=== PATIENT | female | born 1975 | race Caucasian/White ===

== ENCOUNTER 2022-05-10 13:36 | Emergency (ER) | payer BC ==
[2022-05-10 13:54] VITALS: BP 152/94; PULSE 80; O2SAT 99
[2022-05-10] MEDS ORDERED: Pepcid 20 MG PO ONE (14:00)
[2022-05-10] MEDS ORDERED: Pepcid 20 MG ONE (14:02)
--- NOTE | 2022-05-10 14:07 | ERPHSYRPT ---
- History of Present Illness Time Seen by Provider: 05/10/22 14:01 Source: patient Exam Limitations: no limitations Patient Subjective Stated Complaint: Pt has been on Mounjaro since the end of February and they just upped the dose this past week and she just started Jardiance 3 days ago and pt broke out into red prickly spots afternoon, pt noticed it while she was driving and it did not itch and she had been outside so she thought it had just been the sun, pt went to [facility] this morning due to the spreading of the rash and the itching and received a Kenalog injection and sent home, pt feels that it has went from a red prickly spots to hives now and her throat is scratchy and so she came to the ER Triage Nursing Assessment: Pt brought to the ER by her , hypertensive, rates head pain and overall itching as 3/10, scattered hives and red dots on tomasa arms and legs, chest/abdomen and back Physician History: Pt has been on Mounjaro since the end of February and they just upped the dose this past week and she just started Jardiance 3 days ago and pt broke out into red prickly spots afternoon, pt noticed it while she was driving and it did not itch and she had been outside so she thought it had just been the sun, pt went to [facility] this morning due to the spreading of the rash and the itching and received a Kenalog injection and sent home, pt feels that it has went from a red prickly spots to hives now and her throat is scratchy and so she came to the ER scattered hives and red dots on tomasa arms and legs, chest/abdomen and back Timing/Duration: day(s) (3 days ago) Associated Symptoms: rash, No nausea, No vomiting, No abdominal pain, No shortness of breath, No heartburn, No diaphoresis, No cough, No chills, No chest pain, No fever, No loss of appetite Allergies/Adverse Reactions: iodine Allergy (Mild, Verified 05/10/22 13:54) Penicillins Allergy (Mild, Verified 05/10/22 13:54) Home Medications: Albuterol 8 gm Mdi Hfa [Ventolin Hfa MDI] 2 puffs IH Q4H PRN PRN 07/01/21 [History] Atorvastatin Calcium 20 mg PO HS 07/01/21 [History] Insulin Detemir [Levemir] 80 units SQ BID 07/01/21 [History] Insulin Lispro [Humalog] 20 unit SQ TID 07/01/21 [History] Metformin HCl 500 mg [Glucophage 500 MG] 500 mg PO BID 07/01/21 [History] Hx Tetanus, Diphtheria Vaccination/Date Given: Yes Hx Influenza Vaccination/Date Given: No Hx Pneumococcal Vaccination/Date Given: No Travel Risk - International Travel Have you traveled outside of the country in past 3 weeks: No - Coronavirus Screening Are you exhibiting any of the following symptoms?: No Close contact with a COVID-19 positive Pt in past 14-21 Days: No - Vaccine Status Have you recieved a Covid-19 vaccination: Yes 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[facility]: [employer] - Vaccination Dates Date of 2cond Vaccination (if applicable): 2020 - Review of Systems Constitutional: No Symptoms Eyes: No Symptoms Ears, Nose, & Throat: Sinus Drainage Respiratory: No Symptoms Cardiac: No Symptoms Abdominal/Gastrointestinal: No Symptoms Genitourinary Symptoms: No Symptoms Musculoskeletal: No Symptoms Skin: No Symptoms Neurological: No Symptoms Psychological: No Symptoms - Past Medical History Pertinent Past Medical History: Yes Cardiac History: Hypertension Endocrine Medical History: Diabetes Type II - Past Surgical History Past Surgical History: Yes Female Surgical History: Section Other Surgical History: breast lift. skin removal from arms and abdomin - Social History Smoking Status: Never smoker Exposure to second hand smoke: No Drug Use: none Patient Lives Alone: No - Female History Hx Now: No - Nursing Vital Signs Nursing Vital Signs: Initial Vital Signs Temperature 97.1 F 05/10/22 13:40 Pulse Rate 80 05/10/22 13:40 Blood Pressure 152/94 05/10/22 13:40 O2 Sat by Pulse Oximetry 99 05/10/22 13:40 Pain Scale Pain Intensity 3 - Physical Exam General Appearance: no apparent distress, alert Eye Exam: PERRL/EOMI, eyes nml inspection Ears, Nose, Throat Exam: normal ENT inspection, TMs normal, pharynx normal, moist mucous membranes Neck Exam: normal inspection, non-tender, supple, full range of motion Respiratory Exam: normal breath sounds, lungs clear, No respiratory distress Cardiovascular Exam: regular rate/rhythm, normal heart sounds, normal peripheral pulses Gastrointestinal/Abdomen Exam: soft, normal bowel sounds, No tenderness, No mass Back Exam: normal inspection, normal range of motion, No CVA tenderness, No vertebral tenderness Extremity Exam: normal inspection, normal range of motion, pelvis stable Neurologic Exam: alert, oriented x 3, cooperative, normal mood/affect, nml cerebellar function, nml station & gait, sensation nml, No motor deficits Skin Exam: normal color, warm, dry, rash Lymphatic Exam: No adenopathy SpO2: 99 - Course Nursing assessment & vital signs reviewed: Yes - Progress Progress: unchanged Progress Note: 05/10/22 14:03 Patient is advised to hold the probiotics first which was just started 2 days ago. Patient was advised to continue Benadryl. Patient is given 40 mg famotidine in the emergency room to counteract possible food related allergy. Patient is advised to follow-up in my office in next 3 to 4 days. We discussed the elimination process one by one further because of allergy. At this point of time we will stop probiotic first. Then we will consider Jardiance if progress is still persist. 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 The patient was counseled regarding Diagnosis,Lab results, Imaging studies, need for follow up and when to return to the Emergency Room. Prescriptions given: Discharge Note I have spoken with the patient and/or caregivers. I have explained the patient's condition, diagnosis and treatment plan based on the information available to me at this time. I have answered the patient's and/or caregiver's questions and addressed any concerns. The patient and/or caregivers have as good understanding of the patient's diagnosis, condition and treatment plan as can be expected at this point. The vital signs have been stable. The patient's condition is stable and appropriate for discharge from the emergency department. The patient will pursue further outpatient evaluation with the primary care physician or other designated or consulting physician as outlined in the discharge instructions. The patient and/or caregivers are agreeable to this plan of care and follow-up instructions have been explained in detail. The patient and/or caregivers have received these instruction. The patient/and or caregivers are aware that any significant change in condition or worsening of symptoms should prompt an immediate return to this or the closest emergency department or call 911. LUCAS ROMO was seen on 05/10/22 n the Emergency Room. At that time you were treated for an emergent condition, during your visit Laboratory, Radiology and/or other procedures may have been ordered. It is very important that you follow-up with your Primary Care Physician KARLA JACK within the next 24- 48 hours to review your Emergency Room visit and the final results of testing that was ordered. Some test results such as Urine Cultures, Blood Cultures, and other cultures if ordered will not be finalized for 24-48 hours. If you do not have a Primary Care Provider please call the medical records department at [phone] ext [phone] to obtain a copy of your results or you may sign into our patient portal to obtain these results by visiting us @ [email or web address] and completing the following steps: 1. Click on the Patient Portal link 2. Click the Patient Self Enrollment Link to complete the enrollment form and entering your 3. Once the enrollment form is completed you will receive an email with a temporary ID and password at the email address you provided. 4. Next choose a user name and password. Your user name must be at least 4 characters long and your password must be at least 4 characters long. 5. Choose a security question from the list and provide your answer to the question. If you already have signed into the Health Portal you may access your Health Care Information 16/03 by the following steps: 1. Login to our website @ [email or web address] 2. Enter your original user name and password. FAQS The [facility] Health Portal is an online tool that contains your Lab Results, Radiology Reports, Visit History, Discharge Instructions and Health Summary Lab and Radiology Results will not be available for 72 hours on the portal. The Portal is a secure site, passwords are encryted and URLs are re-written so they cannot be copied and pasted. You and authorized family members are the only ones who can access your Portal. Also there is a timeout feature that protects your information if you leave the Portal page open. If you have technical difficulty please use the Contact Us link on the page this will allow you to submit any questions you have regarding the Portal or you may contact the Medical Record Department at [phone] ext [phone]. Prescriptions: Famotidine 20 mg PO BID #20 tablet
== END 2022-05-10 14:16 | disposition home or self-care (01) ==
LOC: ED 13:36
DX: L50.0 Allergic urticaria (principal); I10 Essential (primary) hypertension; E11.9 Type 2 diabetes mellitus without complications; Z79.4 Long term (current) use of insulin; Z79.84 Long term (current) use of oral hypoglycemic drugs; Z79.899 Other long term (current) drug therapy
CPT/HCPCS: 99281; A9270-GY

== ENCOUNTER 2024-02-17 18:39 | Emergency (ER) | payer BC ==
[2024-02-17 19:05] VITALS: TEMP 98.2
--- NOTE | 2024-02-17 19:24 | ERPHSYRPT ---
- History of Present Illness Time Seen by Provider: 02/17/24 19:22 Historian: patient Exam Limitations: no limitations Patient Subjective Stated Complaint: C/O left sided abdominal pain that radiates through to her back X 1 week that is worse and more constant today. Triage Nursing Assessment: Patient ambulated back to ER. She is alert and orient ed. No SOB. Skin tone normal. TORITO DUMONT. Physician History: 48-year-old female presents to emergency department for evaluation of left sided abdominal pain that has been progressively worsening over the past week. Pain is not radiating to her back. No trauma no fever no history of the same. Patient states she feels nauseous but has not vomited. Patient reports constipation as well no diarrhea. Symptoms are moderate in intensity. No specific worsening or improving factors. Patient otherwise feels well. Portions of this note were created with voice recognition technology. There may be grammatical, spelling, punctuation or sound alike errors Timing/Duration: week(s) (1 week) Activities at Onset: none Quality: aching Abdominal Pain Onset Location: other (Left flank and abdominal region) Pain Radiation: no radiation Severity of Pain-Max: moderate Severity of Pain-Current: mild Modifying Factors: Improves With: nothing Associated Symptoms: nausea Previous symptoms: no prior history Allergies/Adverse Reactions: iodine Allergy (Mild, Verified 02/17/24 18:55) Penicillins Allergy (Mild, Verified 02/17/24 18:55) Home Medications: Albuterol 8 gm Mdi Hfa [Ventolin Hfa MDI] 2 puffs IH Q4H PRN PRN 07/01/21 [History] Atorvastatin Calcium 20 mg PO HS 07/01/21 [History] Insulin Detemir [Levemir] 80 units SQ BID 07/01/21 [History] Insulin Lispro [Humalog] 20 unit SQ TID 07/01/21 [History] Metformin HCl 500 mg [Glucophage 500 MG] 500 mg PO BID 07/01/21 [History] Hx Tetanus, Diphtheria Vaccination/Date Given: Yes Hx Influenza Vaccination/Date Given: No Hx Pneumococcal Vaccination/Date Given: No Immunizations Up to Date: Yes Travel Risk - International Travel Have you traveled outside of the country in past 3 weeks: No - Emerging Infectious Disease Are you exhibiting symptoms associated with any current EIDs: Yes Symptoms: Abdominal Pain - Review of Systems Constitutional: No Symptoms, No Fever, No Chills Eyes: No Symptoms Ears, Nose, & Throat: No Symptoms Respiratory: No Symptoms, No Cough, No Dyspnea Cardiac: No Symptoms, No Chest Pain, No Edema, No Syncope Abdominal/Gastrointestinal: No Symptoms, No Abdominal Pain, No Nausea, No Vomiting, No Diarrhea Genitourinary Symptoms: No Symptoms, No Dysuria Musculoskeletal: No Symptoms, No Back Pain, No Neck Pain Skin: No Symptoms, No Rash Neurological: No Symptoms, No Dizziness, No Focal Weakness, No Sensory Changes Psychological: No Symptoms Endocrine: No Symptoms Hematologic/Lymphatic: No Symptoms Immunological/Allergic: No Symptoms All Other Systems: Reviewed and Negative - Past Medical History Pertinent Past Medical History: Yes Cardiac History: High Cholesterol, Hypertension Endocrine Medical History: Diabetes Type II GI Medical History: GERD - Past Surgical History Past Surgical History: Yes Female Surgical History: Section Other Surgical History: breast lift. skin removal from arms and abdomin - Female History Hx Last Menstrual Period: september 23 2012 Hx Now: No - Social History Smoking Status: Never smoker Exposure to second hand smoke: No Drug Use: none Patient Lives Alone: No - Social Determinants of Health Will the patient participate in the screening: Declined to provide - Nursing Vital Signs Nursing Vital Signs: Initial Vital Signs Temperature 98.2 F 02/17/24 18:56 Pulse Rate 86 02/17/24 18:56 Respiratory Rate 25 H 02/17/24 18:56 Blood Pressure 138/98 02/17/24 18:56 O2 Sat by Pulse Oximetry 100 02/17/24 18:56 Pain Scale Pain Intensity 4 - Physical Exam General Appearance: no apparent distress, alert Eye Exam: PERRL/EOMI, eyes nml inspection Ears, Nose, Throat Exam: normal ENT inspection, pharynx normal, moist mucous membranes Neck Exam: normal inspection, non-tender, supple, full range of motion Respiratory Exam: normal breath sounds, lungs clear, airway intact, No respiratory distress Cardiovascular Exam: regular rate/rhythm, normal heart sounds, normal peripheral pulses Gastrointestinal/Abdomen Exam: soft, other (Left-sided abdominal tenderness), No tenderness, No mass Back Exam: normal inspection, normal range of motion, No CVA tenderness, No vertebral tenderness Extremity Exam: normal inspection, normal range of motion, pelvis stable Neurologic Exam: alert, oriented x 3, cooperative, normal mood/affect, sensation nml, No motor deficits Skin Exam: normal color, warm, dry Lymphatic Exam: No adenopathy SpO2 Interpretation: normal SpO2: 100 O2 Delivery: Room Air - Course Nursing assessment & vital signs reviewed: Yes EKG Interpreted by Me: RATE (70), Sinus Rhythm, NORMAL AXIS, NORMAL INTERVALS - CT Exams Abdomen/Pelvis CT Interpretation: Tele-radiologist Report (No comps. Sigmoid diverticulosis. 9 mm left renal angiomyolipoma. 4.1 cm right ovarian cyst. Remaining abdomen pelvis negative) Ordered Tests: Active Orders 24 hr Category Date Time Status IV Insertion STAT Care 02/17/24 19:20 Active ABDOMEN AND PELVIS W/0 CONTRAS [CT] Stat Exams 02/17/24 19:21 Taken BMP Stat Lab 02/17/24 22:57 Completed CBC W DIFF Stat Lab 02/17/24 19:30 Completed CMP Stat Lab 02/17/24 19:30 Completed HCG QUALITATIVE, URINE Stat Lab 02/17/24 19:30 Completed LIPASE Stat Lab 02/17/24 19:30 Completed TROPONIN Q4H Lab 02/17/24 19:30 Completed TROPONIN Q4H Lab 02/17/24 22:57 Completed TROPONIN Q4H Lab 02/18/24 03:30 Ordered UA W/RFX UR CULTURE Stat Lab 02/17/24 19:30 Completed Medication Summary Discontinued Medications Generic Name Dose Route Start Last Admin Trade Name Freq PRN Reason Stop Dose Admin Sodium Chloride 1,000 mls @ 999 mls/hr 02/17/24 19:20 02/17/24 21:59 Sodium Chloride 0.9% 1000 Ml IV 02/17/24 20:20 Infused .Q1H1M STA Infusion Sodium Chloride Confirm 02/17/24 19:49 Sodium Chloride 0.9% 1000 Ml Administered 02/17/24 19:50 Dose 1,000 mls @ ud .ROUTE .STK-MED ONE Sodium Chloride Confirm 02/17/24 21:47 Sodium Chloride 0.9% 1000 Ml Administered 02/17/24 21:48 Dose 1,000 mls @ ud .ROUTE .STK-MED ONE Sodium Chloride 1,000 mls @ 999 mls/hr 02/17/24 21:55 02/17/24 21:57 Sodium Chloride 0.9% 1000 Ml IV 02/17/24 22:55 999 mls/hr .Q1H1M STA Administration Morphine Sulfate 2 mg 02/17/24 19:20 02/17/24 20:00 Morphine Sulfate 2 Mg/Ml Inj IV 02/17/24 19:21 2 mg STAT ONE Administration Morphine Sulfate Confirm 02/17/24 19:49 Morphine Sulfate 2 Mg/Ml Inj Administered 02/17/24 19:50 Dose 2 mg .ROUTE .STK-MED ONE Ondansetron HCl 4 mg 02/17/24 19:20 02/17/24 20:00 Ondansetron Hcl 4 Mg/2 Ml Vial IV 02/17/24 19:21 4 mg STAT ONE Administration Ondansetron HCl Confirm 02/17/24 19:49 Ondansetron Hcl 4 Mg/2 Ml Vial Administered 02/17/24 19:50 Dose 4 mg .ROUTE .STK-MED ONE Lab/Rad Data: Laboratory Result Diagrams 02/17/24 19:30 02/17/24 22:57 Laboratory Results 02/17/24 02/17/24 02/17/24 Range/Units 22:57 22:57 19:30 WBC (3.98-10.04) x10^3/uL RBC (3.93-5.22) x10^6/uL Hgb (11.2-15.7) g/dL Hct (34.1-44.9) % MCV (79.4-94.8) fL MCH (25.6-32.2) pg MCHC (32.2-35.5) g/dL RDW (11.7-14.4) % Plt Count (182-369) x10^3/uL MPV (9.4-12.3) fL Gran % (34.0-71.1) % Immature Gran % (Auto) (0.001-0.429) % Nucleat RBC Rel Count (0.00-0.2) % Eos # (Auto) (0.04-0.36) x10^3/uL Immature Gran # (Auto) (0.001-0.031) x10^3u/L Absolute Lymphs (auto) (1.18-3.74) x10^3/uL Absolute Monos (auto) (0.24-0.86) x10^3/uL Absolute Nucleated RBC (0.00-0.012) x10^3u/L Lymphocytes % (19.3-51.7) % Monocytes % (4.7-12.5) % Eosinophils % (0.7-5.8) % Basophils % (0.1-1.2) % Absolute Granulocytes (1.56-6.13) x10^3/uL Basophils # (0.01-0.08) x10^3/uL Sodium 129 L (135-145) mmol/L Potassium 3.8 (3.5-5.1) mmol/L Chloride 95 L (98-107) mmol/L Carbon Dioxide 26 (22-30) mmol/L Anion Gap 11.9 (5-15) MEQ/L BUN 11 (7-17) mg/dL Creatinine 0.57 (0.52-1.04) mg/dL Estimated GFR 111.3 ML/MIN Glucose 112 H (74-106) mg/dL Calcium 9.2 (8.4-10.2) mg/dL Total Bilirubin (0.2-1.3) mg/dL AST (14-36) U/L ALT (0-35) U/L Alkaline Phosphatase (38-126) U/L Troponin I < 0.012 (0.000-0.033) ng/mL Serum Total Protein (6.3-8.2) g/dL Albumin (3.5-5.0) g/dL Lipase (23-300) U/L Urine Color (Yellow) Urine Appearance (Clear) Urine pH (4.6-8.0) Ur Specific [place] (1.005-1.030) Urine Protein (Negative) Urine Glucose (UA) (Negative) mg/dL Urine Ketones (Negative) Urine Blood (Negative) Urine Nitrite (Negative) Urine Bilirubin (Negative) Urine Urobilinogen (0.2) mg/dL Ur Leukocyte Esterase (Negative) U Hyaline Cast (Auto) (0-2) /LPF Urine Microscopic RBC (0-5) /HPF Urine Microscopic WBC (0-5) /HPF Ur Epithelial Cells (None Seen) /HPF Urine Bacteria (None Seen) /HPF Urine Culture Reflexed (NO) Urine HCG, Qual NEGATIVE (NEGATIVE) 02/17/24 02/17/24 02/17/24 Range/Units 19:30 19:30 19:30 WBC 8.9 (3.98-10.04) x10^3/uL RBC 4.55 (3.93-5.22) x10^6/uL Hgb 13.6 (11.2-15.7) g/dL Hct 38.5 (34.1-44.9) % MCV 84.6 (79.4-94.8) fL MCH 29.9 (25.6-32.2) pg MCHC 35.3 (32.2-35.5) g/dL RDW 11.9 (11.7-14.4) % Plt Count 333 (182-369) x10^3/uL MPV 9.4 (9.4-12.3) fL Gran % 54.9 (34.0-71.1) % Immature Gran % (Auto) 0.2 (0.001-0.429) % Nucleat RBC Rel Count 0.0 (0.00-0.2) % Eos # (Auto) 0.19 (0.04-0.36) x10^3/uL Immature Gran # (Auto) 0.02 (0.001-0.031) x10^3u/L Absolute Lymphs (auto) 3.26 (1.18-3.74) x10^3/uL Absolute Monos (auto) 0.51 (0.24-0.86) x10^3/uL Absolute Nucleated RBC 0.00 (0.00-0.012) x10^3u/L Lymphocytes % 36.5 (19.3-51.7) % Monocytes % 5.7 (4.7-12.5) % Eosinophils % 2.1 (0.7-5.8) % Basophils % 0.6 (0.1-1.2) % Absolute Granulocytes 4.91 (1.56-6.13) x10^3/uL Basophils # 0.05 (0.01-0.08) x10^3/uL Sodium 126 L (135-145) mmol/L Potassium 4.0 (3.5-5.1) mmol/L Chloride 90 L (98-107) mmol/L Carbon Dioxide 23 (22-30) mmol/L Anion Gap 16.7 H (5-15) MEQ/L BUN 11 (7-17) mg/dL Creatinine 0.69 (0.52-1.04) mg/dL Estimated GFR 106.3 ML/MIN Glucose 120 H (74-106) mg/dL Calcium 10.0 (8.4-10.2) mg/dL Total Bilirubin 0.70 (0.2-1.3) mg/dL AST 20 (14-36) U/L ALT 16 (0-35) U/L Alkaline Phosphatase 46 (38-126) U/L Troponin I < 0.012 (0.000-0.033) ng/mL Serum Total Protein 7.6 (6.3-8.2) g/dL Albumin 4.8 (3.5-5.0) g/dL Lipase 85 (23-300) U/L Urine Color (Yellow) Urine Appearance (Clear) Urine pH (4.6-8.0) Ur Specific [place] (1.005-1.030) Urine Protein (Negative) Urine Glucose (UA) (Negative) mg/dL Urine Ketones (Negative) Urine Blood (Negative) Urine Nitrite (Negative) Urine Bilirubin (Negative) Urine Urobilinogen (0.2) mg/dL Ur Leukocyte Esterase (Negative) U Hyaline Cast (Auto) (0-2) /LPF Urine Microscopic RBC (0-5) /HPF Urine Microscopic WBC (0-5) /HPF Ur Epithelial Cells (None Seen) /HPF Urine Bacteria (None Seen) /HPF Urine Culture Reflexed (NO) Urine HCG, Qual (NEGATIVE) 02/17/24 Range/Units 19:30 WBC (3.98-10.04) x10^3/uL RBC (3.93-5.22) x10^6/uL Hgb (11.2-15.7) g/dL Hct (34.1-44.9) % MCV (79.4-94.8) fL MCH (25.6-32.2) pg MCHC (32.2-35.5) g/dL RDW (11.7-14.4) % Plt Count (182-369) x10^3/uL MPV (9.4-12.3) fL Gran % (34.0-71.1) % Immature Gran % (Auto) (0.001-0.429) % Nucleat RBC Rel Count (0.00-0.2) % Eos # (Auto) (0.04-0.36) x10^3/uL Immature Gran # (Auto) (0.001-0.031) x10^3u/L Absolute Lymphs (auto) (1.18-3.74) x10^3/uL Absolute Monos (auto) (0.24-0.86) x10^3/uL Absolute Nucleated RBC (0.00-0.012) x10^3u/L Lymphocytes % (19.3-51.7) % Monocytes % (4.7-12.5) % Eosinophils % (0.7-5.8) % Basophils % (0.1-1.2) % Absolute Granulocytes (1.56-6.13) x10^3/uL Basophils # (0.01-0.08) x10^3/uL Sodium (135-145) mmol/L Potassium (3.5-5.1) mmol/L Chloride (98-107) mmol/L Carbon Dioxide (22-30) mmol/L Anion Gap (5-15) MEQ/L BUN (7-17) mg/dL Creatinine (0.52-1.04) mg/dL Estimated GFR ML/MIN Glucose (74-106) mg/dL Calcium (8.4-10.2) mg/dL Total Bilirubin (0.2-1.3) mg/dL AST (14-36) U/L ALT (0-35) U/L Alkaline Phosphatase (38-126) U/L Troponin I (0.000-0.033) ng/mL Serum Total Protein (6.3-8.2) g/dL Albumin (3.5-5.0) g/dL Lipase (23-300) U/L Urine Color Yellow (Yellow) Urine Appearance Clear (Clear) Urine pH 6.5 (4.6-8.0) Ur Specific [place] <=1.005 (1.005-1.030) Urine Protein Negative (Negative) Urine Glucose (UA) Negative (Negative) mg/dL Urine Ketones Negative (Negative) Urine Blood Negative (Negative) Urine Nitrite Negative (Negative) Urine Bilirubin Negative (Negative) Urine Urobilinogen 0.2 (0.2) mg/dL Ur Leukocyte Esterase Negative (Negative) U Hyaline Cast (Auto) NONE SEEN (0-2) /LPF Urine Microscopic RBC 0-2 (0-5) /HPF Urine Microscopic WBC 0-2 (0-5) /HPF Ur Epithelial Cells None Seen (None Seen) /HPF Urine Bacteria None Seen (None Seen) /HPF Urine Culture Reflexed NO (NO) Urine HCG, Qual (NEGATIVE) - Progress Progress: improved Progress Note: 48-year-old female presents to emergency department for evaluation of left-sided abdominal pain. Patient also nauseous with some constipation. Physical exam otherwise nonremarkable. Laboratory workup reveals an incidental sodium level of 126. Patient received 1 L of normal saline followed by approximately 75% of a second liter of normal saline. Sodium increased from 126-129. Patient states she feels well and is ready for discharge. Patient advised to increase her sodium intake over the next couple days she agrees to do so. Patient will call her family doctor in the morning for follow-up visit and repeat labs to reassess sodium level. CT scan negative for acute pathology. Patient has a right ovarian cyst and a 9 mm left renal angiomyolipoma. These are usually benign however patient advised to follow-up with her primary care doctor for further evaluation and monitoring. Patient agrees to follow-up with her primary care doctor tomorrow for follow- up visit on Thursday. Portions of this note were created with voice recognition technology. There may be grammatical, spelling, punctuation or sound alike errors Complexity problem addressed is moderate acute complicated. No critical care time. Complexity of data reviewed and analyzed is moderate. Test ordered test reviewed results analyzed and correlated clinically with history and physical exam. Risk of morbidity/mortality patient management is moderate. Vital stable. Time spent to discharge patient is approximately 20 minutes. Plan of care established for shared decision making. Patient voices no other complaints or concerns at this time. She agrees to follow-up as discussed. Portions of this note were created with voice recognition technology. There may be grammatical, spelling, punctuation or sound alike errors 02/18/24 00:10 02/18/24 00:12 Counseled pt/family regarding: lab results, diagnosis, need for follow-up, rad results - Departure Departure Disposition: Home Clinical Impression: Hyponatremia, Abdominal pain, Right ovarian cyst, Angiomyolipoma of left kidney Condition: Stable Critical Care Time: No Referrals: KARLA JACK MD [Primary Care Provider] - Follow up/PCP as directed Additional Instructions: Discharge/Care Plan LUCAS ROMO was seen on 02/18/24 in the Emergency Room. The patient was counseled regarding Diagnosis,Lab results, Imaging studies, need for follow up and when to return to the Emergency Room. Prescriptions given: Discharge Note I have spoken with the patient and/or caregivers. I have explained the patient's condition, diagnosis and treatment plan based on the information available to me at this time. I have answered the patient's and/or caregiver's questions and addressed any concerns. The patient and/or caregivers have as good understanding of the patient's diagnosis, condition and treatment plan as can be expected at this point. The vital signs have been stable. The patient's condition is stable and appropriate for discharge from the emergency department. The patient will pursue further outpatient evaluation with the primary care physician or other designated or consulting physician as outlined in the discharge instructions. The patient and/or caregivers are agreeable to this plan of care and follow-up instructions have been explained in detail. The patient and/or caregivers have received these instruction. The patient/and or caregivers are aware that any significant change in condition or worsening of symptoms s hould prompt an immediate return to this or the closest emergency department or call 911.
[2024-02-17 19:38] LABS: Absolute Neutrophil Ct (ANC) 4.91 x10^3/uL (1.56-6.13); BASOPHIL % 0.6 % (0.1-1.2); Basophil (Absolute #) 0.05 x10^3/uL (0.01-0.08); Eosinophil % 2.1 % (0.7-5.8); Eosinophil (Absolute #) 0.19 x10^3/uL (0.04-0.36); Hematocrit 38.5 % (34.1-44.9); Hemoglobin 13.6 g/dL (11.2-15.7); IMMATURE GRAN # 0.02 x10^3u/L (0.001-0.031); IMMATURE GRAN % 0.2 % (0.001-0.429); Lymphocyte (Absolute #) 3.26 x10^3/uL (1.18-3.74); Lymphocytes % 36.5 % (19.3-51.7); Mean Cell Volume 84.6 fL (79.4-94.8); Mean Corpuscular Hemoglobin 29.9 pg (25.6-32.2); Mean Corpuscular Hgb Concent. 35.3 g/dL (32.2-35.5); Mean Platelet Volume 9.4 fL (9.4-12.3); Monocyte (Absolute #) 0.51 x10^3/uL (0.24-0.86); Monocytes % 5.7 % (4.7-12.5); Neutrophil % 54.9 % (34.0-71.1); Platelet Count 333 x10^3/uL (182-369); Red Blood Count 4.55 x10^6/uL (3.93-5.22); Red Cell Distribution Width 11.9 % (11.7-14.4); White Blood Count 8.9 x10^3/uL (3.98-10.04)
[2024-02-17] MEDS ORDERED: Sodium Chloride 0.9% 1000 ML 1,000 ML ONE ×2 (19:49→21:47)
[2024-02-17] MEDS ORDERED: Zofran 4 MG/2 ML VIAL ONE (19:49)
[2024-02-17] MEDS ORDERED: MORPHINE SULFATE 2 MG INJ ONE (19:49)
[2024-02-17 19:52] LABS: ALBUMIN 4.8 g/dL (3.5-5.0); ANION GAP 16.7 MEQ/L (5-15); BILIRUBIN,TOTAL 0.7 mg/dL (0.2-1.3); Creatinine 1 0.69 mg/dL (0.52-1.04); EST GLOMERULAR FILTRATION RATE 106.3 ML/MIN; Total Protein 7.6 g/dL (6.3-8.2)
[2024-02-17] MEDS: Sodium Chloride 0.9% 1000 ML 1,000 ML IV STA ×2 (19:58→21:57)
[2024-02-17] MEDS: Zofran 4 MG/2 ML VIAL IV ONE (20:00)
[2024-02-17] MEDS: MORPHINE SULFATE 2 MG INJ IV ONE (20:00)
[2024-02-17 20:01] LABS: Appearance Clear (Clear); Bacteria None Seen /HPF (None Seen); Bilirubin Negative (Negative); Blood Negative (Negative); Epithelial Cells None Seen /HPF (None Seen); Glucose, Urine Negative (Negative); Hyaline Casts NONE SEEN /LPF (0-2); Ketones Negative (Negative); Leukocyte Esterase Negative (Negative); Nitrite Negative (Negative); Ph 6.5 (4.6-8.0); Protein,Urine Dip Negative (Negative); RBC 0-2 /HPF (0-5); Specific Gravity <=1.005 (1.005-1.030); Urobilinogen 0.2 mg/dL (0.2); WBC 0-2 /HPF (0-5)
[2024-02-17 20:02] LABS: ADD URINE CULTURE? NO (NO); HCG URINE TEST NEGATIVE (NEGATIVE)
[2024-02-17 23:18] LABS: ANION GAP 11.9 MEQ/L (5-15); Calcium 9.2 mg/dL (8.4-10.2); Creatinine 1 0.57 mg/dL (0.52-1.04); EST GLOMERULAR FILTRATION RATE 111.3 ML/MIN; Potassium 3.8 mmol/L (3.5-5.1)
[2024-02-18 00:13] VITALS: BP 98/51; PULSE 82; RESP 17
[2024-02-18 00:16] VITALS: O2SAT 100
--- NOTE | 2024-02-18 09:06 | XRAY ---
Indication: Left abdominal pain 1 week. Multiple contiguous axial images obtained through abdomen and pelvis without contrast. Comparison: None Lung bases are clear. Heart not enlarged. Incidental partially visualized bilateral breast implants. Stomach is mildly fluid distended noncontrasted stomach and bowel loops appear nonobstructed with normal appendix. 1 cm left upper renal and 0.5 mm right lower renal angiomyolipomas. 4.1 cm right ovary cyst. 14.8 cm splenomegaly. No free fluid/air. Remaining liver, gallbladder, pancreas, spleen, adrenal glands, kidneys, ureters, bladder, and uterus are unremarkable for noncontrast exam. Minimal aortoiliac calcifications without AAA. Osseous structures intact with minimal/mild degenerative changes throughout thoracolumbar spine, and minimal levoscoliosis centered at L3. No ventral or inguinal hernias. Impression: 1. 4.1 cm right ovary cyst. Pelvic sonogram may yield further information if clinically warranted. 2. Incidental tiny bilateral renal angiomyolipomas, splenomegaly, and chronic bony findings. 3. Remaining CT abdomen/pelvis without contrast exam is negative.
== END 2024-02-18 00:21 | disposition home or self-care (01) ==
LOC: ED 18:39
DX: E87.1 Hypo-osmolality and hyponatremia (principal); R10.9 Unspecified abdominal pain; N83.201 Unspecified ovarian cyst, right side; D17.71 Benign lipomatous neoplasm of kidney; R11.0 Nausea; E78.5 Hyperlipidemia, unspecified; I10 Essential (primary) hypertension; E11.9 Type 2 diabetes mellitus without complications; Z79.84 Long term (current) use of oral hypoglycemic drugs; Z79.4 Long term (current) use of insulin; Z79.899 Other long term (current) drug therapy
CPT/HCPCS: 36000; 36415; 74176; 80048; 80053; 81001; 81025; 83690; 84484; 85025; 96374; 96375; 99284; J2270; J2405

== ENCOUNTER 2024-02-20 00:49 | Observation (INO) | payer BC ==
[2024-02-20 02:00] LABS: Absolute Neutrophil Ct (ANC) 8.56 x10^3/uL (1.56-6.13); BASOPHIL % 0.3 % (0.1-1.2); Basophil (Absolute #) 0.04 x10^3/uL (0.01-0.08); Eosinophil % 0.9 % (0.7-5.8); Hematocrit 38.8 % (34.1-44.9); Hemoglobin 13.8 g/dL (11.2-15.7); IMMATURE GRAN # 0.05 x10^3u/L (0.001-0.031); IMMATURE GRAN % 0.4 % (0.001-0.429); Lymphocyte (Absolute #) 2.34 x10^3/uL (1.18-3.74); Lymphocytes % 20.2 % (19.3-51.7); Mean Cell Volume 85.5 fL (79.4-94.8); Mean Corpuscular Hemoglobin 30.4 pg (25.6-32.2); Mean Corpuscular Hgb Concent. 35.6 g/dL (32.2-35.5); Mean Platelet Volume 9.6 fL (9.4-12.3); Monocyte (Absolute #) 0.48 x10^3/uL (0.24-0.86); Monocytes % 4.1 % (4.7-12.5); Neutrophil % 74.1 % (34.0-71.1); Platelet Count 330 x10^3/uL (182-369); Red Blood Count 4.54 x10^6/uL (3.93-5.22); Red Cell Distribution Width 11.8 % (11.7-14.4); White Blood Count 11.6 x10^3/uL (3.98-10.04)
[2024-02-20 02:07] LABS: Appearance Clear (Clear); Bacteria None Seen /HPF (None Seen); Bilirubin Negative (Negative); Blood Negative (Negative); Epithelial Cells Rare /HPF (None Seen); Glucose, Urine Negative (Negative); Hyaline Casts NONE SEEN /LPF (0-2); Ketones Trace (Negative); Leukocyte Esterase Negative (Negative); Nitrite Negative (Negative); Ph 6.5 (4.6-8.0); Protein,Urine Dip Negative (Negative); Urobilinogen 0.2 mg/dL (0.2); WBC 0-2 /HPF (0-5)
--- NOTE | 2024-02-20 02:13 | ERPHSYRPT ---
- History of Present Illness Time Seen by Provider: 02/20/24 01:15 Source: patient Exam Limitations: no limitations Patient Subjective Stated Complaint: high blood pressure Triage Nursing Assessment: pt ambulated into the er; pt is axo x4; c/o htn; pt denies pain; hypertensive 159/89; clear apical heart tone; strong tomasa radial and pedal pulses; no BLE edema present; clear lung sounds in all lobes; skin PDW; no respiratory distress present Physician History: This is an obese 48-year-old white female patient has a history insulin- dependent diabetes, hyperlipidemia, hypertension, gastroesophageal reflux disease and is a patient of Dr. Butts and presents with myalgias arthralgias, mild headache and nausea symptoms as well as a concern for hypertension. Patient does have a history of hypertension and has been taking her medication. Patient was seen on 02/17/2024 and part of her diagnosis/clinical impression was hyponatremia. I reviewed the workup results from our emergency department on 02/17/2024. Patient had a sodium of 129 at the time of discharge. Since that time she said that she has been taking electrolytes and increased added salt and now feels as though she is a little bit swollen. Her initial systolic blood pressure in our emergency department this morning was 154. She denies chest pain. She denies shortness of breath. She denies cough. She has no abdominal pain. She has had no vomiting or diarrhea symptoms. Patient states that her topiramate dosing was increased 2 weeks ago. Patient is on hydrochlorothiazide and Zoloft. She has been on these medications for couple of years Timing/Duration: yesterday Severity: mild Modifying Factors: Improves With: nothing Associated Symptoms: nausea, headaches, other (Body aches) Allergies/Adverse Reactions: iodine Allergy (Mild, Verified 02/20/24 00:53) Penicillins Allergy (Mild, Verified 02/20/24 00:53) Home Medications: Atorvastatin Calcium 20 mg PO HS 07/01/21 [History] Metformin HCl 500 mg [Glucophage 500 MG] 1,000 mg PO BID 07/01/21 [History] Famotidine 20 mg PO DAILY PRN 02/20/24 [History] Hydrochlorothiazide 25 mg [hydroDIURIL 25 MG] 25 mg PO DAILY 02/20/24 [History] Lisinopril 20 mg [Zestril 20 MG] 20 mg PO DAILY 02/20/24 [History] Metoprolol Tartrate 50 mg [Lopressor 50 MG] 50 mg PO DAILY 02/20/24 [History] Phentermine HCl 37.5 mg PO DAILY 02/20/24 [History] Progesterone, Micronized [Progesterone] 100 mg PO DAILY 02/20/24 [History] Sertraline HCl 50 mg [Zoloft 50 mg Tablet] 50 mg PO DAILY 02/20/24 [History] Tirzepatide [Mounjaro] 12.5 mg SQ WEEKLY 02/20/24 [History] Topiramate 50 mg PO DAILY 02/20/24 [History] estradioL [Estradiol (Twice Weekly)] 1 each TD UD 02/20/24 [History] Hx Tetanus, Diphtheria Vaccination/Date Given: Yes Hx Influenza Vaccination/Date Given: No Hx Pneumococcal Vaccination/Date Given: No Immunizations Up to Date: No Travel Risk - International Travel Have you traveled outside of the country in past 3 weeks: No - Emerging Infectious Disease Are you exhibiting symptoms associated with any current EIDs: No Symptoms: Abdominal Pain - Review of Systems Constitutional: Weakness Eyes: No Symptoms Ears, Nose, & Throat: No Symptoms Respiratory: No Symptoms Cardiac: No Symptoms Abdominal/Gastrointestinal: Nausea Musculoskeletal: Arthralgias, Myalgias Skin: No Symptoms Neurological: Headache Psychological: No Symptoms Endocrine: No Symptoms Hematologic/Lymphatic: No Symptoms Immunological/Allergic: No Symptoms All Other Systems: Reviewed and Negative - Past Medical History Pertinent Past Medical History: Yes Cardiac History: High Cholesterol, Hypertension Endocrine Medical History: Diabetes Type II GI Medical History: GERD Psycho-Social History: Anxiety - Past Surgical History Past Surgical History: Yes Female Surgical History: Section Other Surgical History: breast lift. skin removal from arms and abdomin - Female History Hx Last Menstrual Period: september 23 2012 Hx Now: No - Social History Smoking Status: Never smoker Exposure to second hand smoke: No Drug Use: none Patient Lives Alone: No - Social Determinants of Health Will the patient participate in the screening: Declined to provide - Nursing Vital Signs Nursing Vital Signs: Initial Vital Signs Pulse Rate 68 02/20/24 01:00 Respiratory Rate 17 02/20/24 01:00 Blood Pressure 154/89 02/20/24 01:00 O2 Sat by Pulse Oximetry 100 02/20/24 01:00 Pain Scale Pain Intensity 0 - Physical Exam General Appearance: no apparent distress, alert, anxiety, obese Eye Exam: PERRL/EOMI, eyes nml inspection Ears, Nose, Throat Exam: normal ENT inspection, moist mucous membranes Neck Exam: normal inspection, non-tender, supple, full range of motion Respiratory Exam: normal breath sounds, lungs clear, airway intact, No chest tenderness, No respiratory distress Cardiovascular Exam: regular rate/rhythm, normal heart sounds, normal peripheral pulses Gastrointestinal/Abdomen Exam: soft, normal bowel sounds, No tenderness Pelvic Exam: not done Rectal Exam: not done Back Exam: normal inspection, normal range of motion, No CVA tenderness, No vertebral tenderness Extremity Exam: normal inspection, normal range of motion, pelvis stable Neurologic Exam: alert, oriented x 3, cooperative, 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, nml cerebellar function, nml station & gait, sensation nml Skin Exam: normal color, warm, dry Lymphatic Exam: No adenopathy SpO2 Interpretation: normal SpO2: 100 O2 Delivery: Room Air - Course Nursing assessment & vital signs reviewed: Yes Ordered Tests: Active Orders 24 hr Category Date Time Status IV Insertion STAT Care 02/20/24 01:02 Active CHEST 1 VIEW (PORTABLE) Stat Exams 02/20/24 01:02 Taken BNPII [NT PRO BNPII] Stat Lab 02/20/24 01:58 Completed CBC W DIFF Stat Lab 02/20/24 01:58 Completed CMP Stat Lab 02/20/24 01:58 Completed POTASSIUM, URINE RANDOM Stat Lab 02/20/24 01:29 Completed Sodium, Urine Stat Lab 02/20/24 01:29 Completed UA W/RFX UR CULTURE Stat Lab 02/20/24 01:29 Completed Medication Summary Generic Name Dose Route Start Last Admin Trade Name Freq PRN Reason Stop Dose Admin Sodium Chloride 1,000 mls @ 999 mls/hr 02/20/24 03:48 02/20/24 03:51 Sodium Chloride 0.9% 1000 Ml IV 02/20/24 04:48 999 mls/hr .Q1H1M STA Administration Ondansetron HCl 4 mg 02/20/24 04:21 Ondansetron Hcl 4 Mg/2 Ml Vial IV 02/20/24 04:22 STAT ONE Discontinued Medications Generic Name Dose Route Start Last Admin Trade Name Freq PRN Reason Stop Dose Admin Sodium Chloride Confirm 02/20/24 03:49 Sodium Chloride 0.9% 1000 Ml Administered 02/20/24 03:50 Dose 1,000 mls @ .ROUTE .[facility] ONE Lab/Rad Data: Laboratory Result Diagrams 02/20/24 01:58 02/20/24 01:58 Laboratory Results 02/20/24 02/20/24 02/20/24 Range/Units 02:19 01:58 01:58 WBC (3.98-10.04) x10^3/uL RBC (3.93-5.22) x10^6/uL Hgb (11.2-15.7) g/dL Hct (34.1-44.9) % MCV (79.4-94.8) fL MCH (25.6-32.2) pg MCHC (32.2-35.5) g/dL RDW (11.7-14.4) % Plt Count (182-369) x10^3/uL MPV (9.4-12.3) fL Gran % (34.0-71.1) % Immature Gran % (Auto) (0.001-0.429) % Nucleat RBC Rel Count (0.00-0.2) % Eos # (Auto) (0.04-0.36) x10^3/uL Immature Gran # (Auto) (0.001-0.031) x10^3u/L Absolute Lymphs (auto) (1.18-3.74) x10^3/uL Absolute Monos (auto) (0.24-0.86) x10^3/uL Absolute Nucleated RBC (0.00-0.012) x10^3u/L Lymphocytes % (19.3-51.7) % Monocytes % (4.7-12.5) % Eosinophils % (0.7-5.8) % Basophils % (0.1-1.2) % Absolute Granulocytes (1.56-6.13) x10^3/uL Basophils # (0.01-0.08) x10^3/uL Sodium 124 L (135-145) mmol/L Potassium 3.8 (3.5-5.1) mmol/L Chloride 92 L (98-107) mmol/L Carbon Dioxide 17 L (22-30) mmol/L Anion Gap 19.3 H (5-15) MEQ/L BUN 5 L (7-17) mg/dL Creatinine 0.47 L (0.52-1.04) mg/dL Estimated GFR 116.6 ML/MIN Glucose 133 H (74-106) mg/dL Calcium 9.4 (8.4-10.2) mg/dL Total Bilirubin 0.70 (0.2-1.3) mg/dL AST 23 (14-36) U/L ALT 15 (0-35) U/L Alkaline Phosphatase 51 (38-126) U/L NT-Pro-B Natriuret Pep 452 (<300) pg/mL Serum Total Protein 7.5 (6.3-8.2) g/dL Albumin 4.5 (3.5-5.0) g/dL Urine Color (Yellow) Urine Appearance (Clear) Urine pH (4.6-8.0) Ur Specific [place] (1.005-1.030) Urine Protein (Negative) Urine Glucose (UA) (Negative) mg/dL Urine Ketones (Negative) Urine Blood (Negative) Urine Nitrite (Negative) Urine Bilirubin (Negative) Urine Urobilinogen (0.2) mg/dL Ur Leukocyte Esterase (Negative) U Hyaline Cast (Auto) (0-2) /LPF Urine Microscopic RBC (0-5) /HPF Urine Microscopic WBC (0-5) /HPF Ur Epithelial Cells (None Seen) /HPF Urine Bacteria (None Seen) /HPF Urine Culture Reflexed (NO) Urine Sodium (30-90) mmol/L Urine Potassium (0.1-0.7) mmol/L Influenza Type A Ag NEGATIVE (NEGATIVE) Influenza Type B Ag NEGATIVE (NEGATIVE) RSV (PCR) NEGATIVE (NEGATIVE) SARS-CoV-2 (PCR) NEGATIVE (NEGATIVE) 02/20/24 02/20/24 02/20/24 Range/Units 01:58 01:29 01:29 WBC 11.6 H (3.98-10.04) x10^3/uL RBC 4.54 (3.93-5.22) x10^6/uL Hgb 13.8 (11.2-15.7) g/dL Hct 38.8 (34.1-44.9) % MCV 85.5 (79.4-94.8) fL MCH 30.4 (25.6-32.2) pg MCHC 35.6 H (32.2-35.5) g/dL RDW 11.8 (11.7-14.4) % Plt Count 330 (182-369) x10^3/uL MPV 9.6 (9.4-12.3) fL Gran % 74.1 H (34.0-71.1) % Immature Gran % (Auto) 0.4 (0.001-0.429) % Nucleat RBC Rel Count 0.0 (0.00-0.2) % Eos # (Auto) 0.10 (0.04-0.36) x10^3/uL Immature Gran # (Auto) 0.05 H (0.001-0.031) x10^3u/L Absolute Lymphs (auto) 2.34 (1.18-3.74) x10^3/uL Absolute Monos (auto) 0.48 (0.24-0.86) x10^3/uL Absolute Nucleated RBC 0.00 (0.00-0.012) x10^3u/L Lymphocytes % 20.2 (19.3-51.7) % Monocytes % 4.1 L (4.7-12.5) % Eosinophils % 0.9 (0.7-5.8) % Basophils % 0.3 (0.1-1.2) % Absolute Granulocytes 8.56 H (1.56-6.13) x10^3/uL Basophils # 0.04 (0.01-0.08) x10^3/uL Sodium (135-145) mmol/L Potassium (3.5-5.1) mmol/L Chloride (98-107) mmol/L Carbon Dioxide (22-30) mmol/L Anion Gap (5-15) MEQ/L BUN (7-17) mg/dL Creatinine (0.52-1.04) mg/dL Estimated GFR ML/MIN Glucose (74-106) mg/dL Calcium (8.4-10.2) mg/dL Total Bilirubin (0.2-1.3) mg/dL AST (14-36) U/L ALT (0-35) U/L Alkaline Phosphatase (38-126) U/L NT-Pro-B Natriuret Pep (<300) pg/mL Serum Total Protein (6.3-8.2) g/dL Albumin (3.5-5.0) g/dL Urine Color (Yellow) Urine Appearance (Clear) Urine pH (4.6-8.0) Ur Specific [place] (1.005-1.030) Urine Protein (Negative) Urine Glucose (UA) (Negative) mg/dL Urine Ketones (Negative) Urine Blood (Negative) Urine Nitrite (Negative) Urine Bilirubin (Negative) Urine Urobilinogen (0.2) mg/dL Ur Leukocyte Esterase (Negative) U Hyaline Cast (Auto) (0-2) /LPF Urine Microscopic RBC (0-5) /HPF Urine Microscopic WBC (0-5) /HPF Ur Epithelial Cells (None Seen) /HPF Urine Bacteria (None Seen) /HPF Urine Culture Reflexed (NO) Urine Sodium 78 (30-90) mmol/L Urine Potassium 33.6 H (0.1-0.7) mmol/L Influenza Type A Ag (NEGATIVE) Influenza Type B Ag (NEGATIVE) RSV (PCR) (NEGATIVE) SARS-CoV-2 (PCR) (NEGATIVE) 02/20/24 Range/Units 01:29 WBC (3.98-10.04) x10^3/uL RBC (3.93-5.22) x10^6/uL Hgb (11.2-15.7) g/dL Hct (34.1-44.9) % MCV (79.4-94.8) fL MCH (25.6-32.2) pg MCHC (32.2-35.5) g/dL RDW (11.7-14.4) % Plt Count (182-369) x10^3/uL MPV (9.4-12.3) fL Gran % (34.0-71.1) % Immature Gran % (Auto) (0.001-0.429) % Nucleat RBC Rel Count (0.00-0.2) % Eos # (Auto) (0.04-0.36) x10^3/uL Immature Gran # (Auto) (0.001-0.031) x10^3u/L Absolute Lymphs (auto) (1.18-3.74) x10^3/uL Absolute Monos (auto) (0.24-0.86) x10^3/uL Absolute Nucleated RBC (0.00-0.012) x10^3u/L Lymphocytes % (19.3-51.7) % Monocytes % (4.7-12.5) % Eosinophils % (0.7-5.8) % Basophils % (0.1-1.2) % Absolute Granulocytes (1.56-6.13) x10^3/uL Basophils # (0.01-0.08) x10^3/uL Sodium (135-145) mmol/L Potassium (3.5-5.1) mmol/L Chloride (98-107) mmol/L Carbon Dioxide (22-30) mmol/L Anion Gap (5-15) MEQ/L BUN (7-17) mg/dL Creatinine (0.52-1.04) mg/dL Estimated GFR ML/MIN Glucose (74-106) mg/dL Calcium (8.4-10.2) mg/dL Total Bilirubin (0.2-1.3) mg/dL AST (14-36) U/L ALT (0-35) U/L Alkaline Phosphatase (38-126) U/L NT-Pro-B Natriuret Pep (<300) pg/mL Serum Total Protein (6.3-8.2) g/dL Albumin (3.5-5.0) g/dL Urine Color Yellow (Yellow) Urine Appearance Clear (Clear) Urine pH 6.5 (4.6-8.0) Ur Specific [place] 1.010 (1.005-1.030) Urine Protein Negative (Negative) Urine Glucose (UA) Negative (Negative) mg/dL Urine Ketones Trace A (Negative) Urine Blood Negative (Negative) Urine Nitrite Negative (Negative) Urine Bilirubin Negative (Negative) Urine Urobilinogen 0.2 (0.2) mg/dL Ur Leukocyte Esterase Negative (Negative) U Hyaline Cast (Auto) NONE SEEN (0-2) /LPF Urine Microscopic RBC 3-5 (0-5) /HPF Urine Microscopic WBC 0-2 (0-5) /HPF Ur Epithelial Cells Rare (None Seen) /HPF Urine Bacteria None Seen (None Seen) /HPF Urine Culture Reflexed NO (NO) Urine Sodium (30-90) mmol/L Urine Potassium (0.1-0.7) mmol/L Influenza Type A Ag (NEGATIVE) Influenza Type B Ag (NEGATIVE) RSV (PCR) (NEGATIVE) SARS-CoV-2 (PCR) (NEGATIVE) - Progress Progress: improved, re-examined Progress Note: 02/20/24 02:11 My medical decision making and the assignment of moderate complexity to this patient's medical issue today is based on review of the patient's past medical history, review of the patient's medication list, review the patient drug allergy list, history present illness and physical findings on examination. This patient's workup includes placement of intravenous line, CBC, CMP, urinalysis and urine osmolality as well as urine electrolytes. Will also order viral swabs. Differential diagnosis includes but is not limited to hypertension, urinary tract infection, dehydration, electrolyte abnormalities, anxiety about health, viral illness 02/20/24 02:12 I interpreted the patient's preliminary chest x-ray report. There is no evidence of any acute cardiopulmonary process. There is no cardiomegaly and there are no pleural effusions present 02/20/24 04:22 I interpreted the patient's laboratory data results. The patient has hyponatremia and hypochloremia. She is having some symptoms that may or may not be related to this hyponatremia issue. However, this is her second visit to the emergency department in approximately [address] [facility]. I reviewed the patient history, I reviewed the chief complaint, I reviewed the patient's physical exam findings and the results of her workup. We will place this patient in observation and provide her with crystalloid solution and repeat labs on the morning of 02/21/2024. She wants me to hold the Zoloft and hold the hydrochlorothiazide Counseled pt/family regarding: lab results, diagnosis, need for follow-up, rad results Medical Desision Making - Independent Historian Additional History obtained from: Spouse - Diagnostic Testing Diagnostic test were ordered, analyzed, and reviewed by me: Yes Radiological Interpretation: Interpreted by me - Risk of complications The pt has a high risk of morbidity or mortality based on: Decision regarding hospitilization or escalation of hosp level of care - Departure Departure Disposition: Observation Clinical Impression: Hyponatremia, Hypochloremia Condition: Stable Critical Care Time: No Referrals: JACK,KARLA DAGO, MD [Primary Care Provider] - Follow up/PCP as directed
[2024-02-20 02:14] LABS: ADD URINE CULTURE? NO (NO)
[2024-02-20 02:14] LABS: ALBUMIN 4.5 g/dL (3.5-5.0); ANION GAP 19.3 MEQ/L (5-15); BILIRUBIN,TOTAL 0.7 mg/dL (0.2-1.3); Calcium 9.4 mg/dL (8.4-10.2); Creatinine 1 0.47 mg/dL (0.52-1.04); EST GLOMERULAR FILTRATION RATE 116.6 ML/MIN; Potassium 3.8 mmol/L (3.5-5.1); Total Protein 7.5 g/dL (6.3-8.2)
[2024-02-20 02:56] LABS: INFLUENZA A NEGATIVE (NEGATIVE); INFLUENZA B NEGATIVE (NEGATIVE); RESPIRATORY SYNCTIAL VIRUS NEGATIVE (NEGATIVE); SARS-CoV-2 Xpert Express NEGATIVE (NEGATIVE)
[2024-02-20] MEDS ORDERED: Sodium Chloride 0.9% 1000 ML 1,000 ML ONE ×2 (03:49→04:50)
[2024-02-20] MEDS: Sodium Chloride 0.9% 1000 ML 1,000 ML IV STA (03:51)
[2024-02-20] MEDS: Zofran 4 MG/2 ML VIAL IV ONE (04:23)
[2024-02-20] MEDS ORDERED: Zofran 4 MG/2 ML VIAL ONE (04:23)
[2024-02-20] MEDS: Sodium Chloride 0.9% 1000 ML 1,000 ML IV SCH ×2 (04:51→06:22)
[2024-02-20] MEDS ORDERED: HUMULIN R SQ PRN (05:10)
[2024-02-20] MEDS ORDERED: Pepcid 20 MG PO PRN (06:33)
[2024-02-20] MEDS ORDERED: HUMALOG SQ PRN (06:35)
--- NOTE | 2024-02-20 06:44 | PCM.HP ---
History of Present Illness - Chief Complaint Chief Complaint: Hyponatremia, hypochloremia Date: 02/20/24 History of Present Illness: is a 48 year old female with PMH significant fo rHTN, DM, Anxiety, HLD, Came to the ER complaining of headache /nausea and feeling weak. Patient told me that due to ongoing nausea she was not able to eat well for last 1 week, denied having any vomiting or diarrhea. She did not have any abdominal pain. She saw her PCP recently and being told about the right ovarian cyst cyst that needs to be operated. She further told me that she is not taking Zoloft anymore and her Topamax dose recently been increased. As far as her headache is concerned it is something new denied having any history of migraine. In the ER her initial blood pressure was 154/89 she was afebrile with stable pulse. As well as blood workup concern sodium was 124, low bicarb and chloride with high anion gap. Creatinine within normal range. Urine was clear. EKG unremarkable. Chest x-ray was negative. Patient was given 1 L bolus admitted for h yponatremia. - Review of Systems All Other Systems: Reviewed and Negative (14 systems reviewed and marked ve except mentioned in VIEJAS) Medications & Allergies Home Medications: Home Medication List Atorvastatin Calcium 20 mg PO HS 07/01/21 [History Confirmed 02/20/24] Metformin HCl 500 mg [Glucophage 500 MG] 1,000 mg PO BID 07/01/21 [History Confirmed 02/20/24] Famotidine 20 mg PO DAILY PRN 02/20/24 [History Confirmed 02/20/24] Hydrochlorothiazide 25 mg [hydroDIURIL 25 MG] 25 mg PO DAILY 02/20/24 [H istory Confirmed 02/20/24] Lisinopril 20 mg [Zestril 20 MG] 20 mg PO HS 02/20/24 [History Confirmed 02/20/24] Metoprolol Tartrate 50 mg [Lopressor 50 MG] 50 mg PO DAILY 02/20/24 [History Confirmed 02/20/24] Phentermine HCl 37.5 mg PO DAILY 02/20/24 [History Confirmed 02/20/24] Progesterone, Micronized [Progesterone] 100 mg PO DAILY 02/20/24 [History Confirmed 02/20/24] Sertraline HCl 50 mg [Zoloft 50 mg Tablet] 50 mg PO DAILY 02/20/24 [History Confirmed 02/20/24] Tirzepatide [Mounjaro] 12.5 mg SQ WEEKLY 02/20/24 [History Confirmed 02/20/24] Topiramate 50 mg PO DAILY 02/20/24 [History Confirmed 02/20/24] estradioL [Estradiol (Twice Weekly)] 1 each TD UD 02/20/24 [History Confirmed 02/20/24] Allergies/Adverse Reactions: Allergies Allergy/AdvReac Type Severity Reaction Status Date / Time iodine Allergy Mild Verified 02/20/24 00:53 Penicillins Allergy Mild Verified 02/20/24 00:53 - Past Medical History Past Medical History: Yes Neurological History: No Pertinent History ENT History: No Pertinent History Cardiac History: High Cholesterol, Hypertension Respiratory History: No Pertinent History Endocrine Medical History: Diabetes Type II Musculoskelatal History: No Pertinent History GI Medical History: GERD History: No Pertinent History Pyscho-Social History: Anxiety Reproductive Disorders: No Pertinent History - Female History Are you now?: No - Past Surgical History Past Surgical History: Yes Neuro Surgical History: No Pertinent History Cardiac History: No Pertinent History Respiratory Surgery: No Pertinent History GI Surgical History: No Pertinent History Genitourinary Surgical Hx: No Pertinent History Musculskeletal Surgical Hx: No Pertinent History Female Surgical History: Section Other Surgical History: breast lift. skin removal from arms and abdomen Significant Family History: no pertinent family hx (No family history pertaining to this admission reported) - Social History Smoking Status: Never smoker Exposure to second hand smoke: No Alcohol: None Drug Use: none - Social Determinants of Health Will the patient participate in the screening: Declined to provide - Physical Exam Vital Signs: Vital Signs - 24 hr Temp Pulse Resp BP BP Pulse Ox 02/20/24 05:26 96.9 F 97 H 16 136/69 99 02/20/24 04:45 89 18 130/85 97 02/20/24 04:30 80 17 125/80 99 02/20/24 04:27 100 02/20/24 04:15 87 14 129/85 97 02/20/24 04:00 80 14 126/78 97 02/20/24 03:54 85 21 123/82 97 02/20/24 03:53 84 15 97 02/20/24 03:50 80 18 98 02/20/24 03:40 92 H 11 L 97 02/20/24 03:33 103 H 15 97 02/20/24 03:15 95 H 113/78 97 02/20/24 03:00 91 H 15 117/81 96 02/20/24 02:45 81 18 124/85 95 02/20/24 02:30 85 17 121/80 96 02/20/24 02:15 70 14 127/78 97 02/20/24 02:11 67 13 126/84 99 02/20/24 01:01 97.2 F 66 14 159/89 100 02/20/24 01:00 68 17 154/89 100 Additional Findings: HEENT Middle aged, average built in no distress NECK Supple,no thyromegaly, CVS S1+S2 + 0, no murmers RESP Bilateral equal air entry without Crepts/Wheezes heard GIT Soft non tender,non distended Skin, No rah, no Bruises LEGS No Edema PSYCH Normal,m ood, judgement and insight NEURO AOX3, no focal deficit 02/20/24 06:42 Results - Labs Lab/Micro Results: Lab Results-Last 24 Hours 02/20/24 02/20/24 02/20/24 Range/Units 01:29 01:29 01:29 WBC (3.98-10.04) x10^3/uL RBC (3.93-5.22) x10^6/uL Hgb (11.2-15.7) g/dL Hct (34.1-44.9) % MCV (79.4-94.8) fL MCH (25.6-32.2) pg MCHC (32.2-35.5) g/dL RDW (11.7-14.4) % Plt Count (182-369) x10^3/uL MPV (9.4-12.3) fL Gran % (34.0-71.1) % Immature Gran % (Auto) (0.001-0.429) % Nucleat RBC Rel Count (0.00-0.2) % Eos # (Auto) (0.04-0.36) x10^3/uL Immature Gran # (Auto) (0.001-0.031) x10^3u/L Absolute Lymphs (auto) (1.18-3.74) x10^3/uL Absolute Monos (auto) (0.24-0.86) x10^3/uL Absolute Nucleated RBC (0.00-0.012) x10^3u/L Lymphocytes % (19.3-51.7) % Monocytes % (4.7-12.5) % Eosinophils % (0.7-5.8) % Basophils % (0.1-1.2) % Absolute Granulocytes (1.56-6.13) x10^3/uL Basophils # (0.01-0.08) x10^3/uL Sodium (135-145) mmol/L Potassium (3.5-5.1) mmol/L Chloride (98-107) mmol/L Carbon Dioxide (22-30) mmol/L Anion Gap (5-15) MEQ/L BUN (7-17) mg/dL Creatinine (0.52-1.04) mg/dL Estimated GFR ML/MIN Glucose (74-106) mg/dL Calcium (8.4-10.2) mg/dL Total Bilirubin (0.2-1.3) mg/dL AST (14-36) U/L ALT (0-35) U/L Alkaline Phosphatase (38-126) U/L NT-Pro-B Natriuret Pep (<300) pg/mL Serum Total Protein (6.3-8.2) g/dL Albumin (3.5-5.0) g/dL Urine Color Yellow (Yellow) Urine Appearance Clear (Clear) Urine pH 6.5 (4.6-8.0) Ur Specific Rulo 1.010 (1.005-1.030) Urine Protein Negative (Negative) Urine Glucose (UA) Negative (Negative) mg/dL Urine Ketones Trace A (Negative) Urine Blood Negative (Negative) Urine Nitrite Negative (Negative) Urine Bilirubin Negative (Negative) Urine Urobilinogen 0.2 (0.2) mg/dL Ur Leukocyte Esterase Negative (Negative) U Hyaline Cast (Auto) NONE SEEN (0-2) /LPF Urine Microscopic RBC 3-5 (0-5) /HPF Urine Microscopic WBC 0-2 (0-5) /HPF Ur Epithelial Cells Rare (None Seen) /HPF Urine Bacteria None Seen (None Seen) /HPF Urine Culture Reflexed NO (NO) Urine Sodium 78 (30-90) mmol/L Urine Potassium 33.6 H (0.1-0.7) mmol/L Influenza Type A Ag (NEGATIVE) Influenza Type B Ag (NEGATIVE) RSV (PCR) (NEGATIVE) SARS-CoV-2 (PCR) (NEGATIVE) 02/20/24 02/20/24 02/20/24 Range/Units 01:58 01:58 01:58 WBC 11.6 H (3.98-10.04) x10^3/uL RBC 4.54 (3.93-5.22) x10^6/uL Hgb 13.8 (11.2-15.7) g/dL Hct 38.8 (34.1-44.9) % MCV 85.5 (79.4-94.8) fL MCH 30.4 (25.6-32.2) pg MCHC 35.6 H (32.2-35.5) g/dL RDW 11.8 (11.7-14.4) % Plt Count 330 (182-369) x10^3/uL MPV 9.6 (9.4-12.3) fL Gran % 74.1 H (34.0-71.1) % Immature Gran % (Auto) 0.4 (0.001-0.429) % Nucleat RBC Rel Count 0.0 (0.00-0.2) % Eos # (Auto) 0.10 (0.04-0.36) x10^3/uL Immature Gran # (Auto) 0.05 H (0.001-0.031) x10^3u/L Absolute Lymphs (auto) 2.34 (1.18-3.74) x10^3/uL Absolute Monos (auto) 0.48 (0.24-0.86) x10^3/uL Absolute Nucleated RBC 0.00 (0.00-0.012) x10^3u/L Lymphocytes % 20.2 (19.3-51.7) % Monocytes % 4.1 L (4.7-12.5) % Eosinophils % 0.9 (0.7-5.8) % Basophils % 0.3 (0.1-1.2) % Absolute Granulocytes 8.56 H (1.56-6.13) x10^3/uL Basophils # 0.04 (0.01-0.08) x10^3/uL Sodium 124 L (135-145) mmol/L Potassium 3.8 (3.5-5.1) mmol/L Chloride 92 L (98-107) mmol/L Carbon Dioxide 17 L (22-30) mmol/L Anion Gap 19.3 H (5-15) MEQ/L BUN 5 L (7-17) mg/dL Creatinine 0.47 L (0.52-1.04) mg/dL Estimated GFR 116.6 ML/MIN Glucose 133 H (74-106) mg/dL Calcium 9.4 (8.4-10.2) mg/dL Total Bilirubin 0.70 (0.2-1.3) mg/dL AST 23 (14-36) U/L ALT 15 (0-35) U/L Alkaline Phosphatase 51 (38-126) U/L NT-Pro-B Natriuret Pep 452 (<300) pg/mL Serum Total Protein 7.5 (6.3-8.2) g/dL Albumin 4.5 (3.5-5.0) g/dL Urine Color (Yellow) Urine Appearance (Clear) Urine pH (4.6-8.0) Ur Specific Rulo (1.005-1.030) Urine Protein (Negative) Urine Glucose (UA) (Negative) mg/dL Urine Ketones (Negative) Urine Blood (Negative) Urine Nitrite (Negative) Urine Bilirubin (Negative) Urine Urobilinogen (0.2) mg/dL Ur Leukocyte Esterase (Negative) U Hyaline Cast (Auto) (0-2) /LPF Urine Microscopic RBC (0-5) /HPF Urine Microscopic WBC (0-5) /HPF Ur Epithelial Cells (None Seen) /HPF Urine Bacteria (None Seen) /HPF Urine Culture Reflexed (NO) Urine Sodium (30-90) mmol/L Urine Potassium (0.1-0.7) mmol/L Influenza Type A Ag (NEGATIVE) Influenza Type B Ag (NEGATIVE) RSV (PCR) (NEGATIVE) SARS-CoV-2 (PCR) (NEGATIVE) 02/20/24 Range/Units 02:19 WBC (3.98-10.04) x10^3/uL RBC (3.93-5.22) x10^6/uL Hgb (11.2-15.7) g/dL Hct (34.1-44.9) % MCV (79.4-94.8) fL MCH (25.6-32.2) pg MCHC (32.2-35.5) g/dL RDW (11.7-14.4) % Plt Count (182-369) x10^3/uL MPV (9.4-12.3) fL Gran % (34.0-71.1) % Immature Gran % (Auto) (0.001-0.429) % Nucleat RBC Rel Count (0.00-0.2) % Eos # (Auto) (0.04-0.36) x10^3/uL Immature Gran # (Auto) (0.001-0.031) x10^3u/L Absolute Lymphs (auto) (1.18-3.74) x10^3/uL Absolute Monos (auto) (0.24-0.86) x10^3/uL Absolute Nucleated RBC (0.00-0.012) x10^3u/L Lymphocytes % (19.3-51.7) % Monocytes % (4.7-12.5) % Eosinophils % (0.7-5.8) % Basophils % (0.1-1.2) % Absolute Granulocytes (1.56-6.13) x10^3/uL Basophils # (0.01-0.08) x10^3/uL Sodium (135-145) mmol/L Potassium (3.5-5.1) mmol/L Chloride (98-107) mmol/L Carbon Dioxide (22-30) mmol/L Anion Gap (5-15) MEQ/L BUN (7-17) mg/dL Creatinine (0.52-1.04) mg/dL Estimated GFR ML/MIN Glucose (74-106) mg/dL Calcium (8.4-10.2) mg/dL Total Bilirubin (0.2-1.3) mg/dL AST (14-36) U/L ALT (0-35) U/L Alkaline Phosphatase (38-126) U/L NT-Pro-B Natriuret Pep (<300) pg/mL Serum Total Protein (6.3-8.2) g/dL Albumin (3.5-5.0) g/dL Urine Color (Yellow) Urine Appearance (Clear) Urine pH (4.6-8.0) Ur Specific Rulo (1.005-1.030) Urine Protein (Negative) Urine Glucose (UA) (Negative) mg/dL Urine Ketones (Negative) Urine Blood (Negative) Urine Nitrite (Negative) Urine Bilirubin (Negative) Urine Urobilinogen (0.2) mg/dL Ur Leukocyte Esterase (Negative) U Hyaline Cast (Auto) (0-2) /LPF Urine Microscopic RBC (0-5) /HPF Urine Microscopic WBC (0-5) /HPF Ur Epithelial Cells (None Seen) /HPF Urine Bacteria (None Seen) /HPF Urine Culture Reflexed (NO) Urine Sodium (30-90) mmol/L Urine Potassium (0.1-0.7) mmol/L Influenza Type A Ag NEGATIVE (NEGATIVE) Influenza Type B Ag NEGATIVE (NEGATIVE) RSV (PCR) NEGATIVE (NEGATIVE) SARS-CoV-2 (PCR) NEGATIVE (NEGATIVE) - Radiology Impressions Radiology Exams & Impressions: Radiology Procedures Category Date Time Status CHEST 1 VIEW (PORTABLE) Stat Exams 02/20/24 01:02 Taken Assessment/Plan (1) Hyponatremia Current Visit: Yes Status: Acute Code(s): E87.1 - HYPO-OSMOLALITY AND HYPONATREMIA (2) Right ovarian cyst Current Visit: No Status: Acute Code(s): N83.201 - UNSPECIFIED OVARIAN CYST, RIGHT SIDE (3) Hypertension Current Visit: Yes Status: Acute Code(s): I10 - ESSENTIAL (PRIMARY) HYPERTENSION Telemedicine Encounter - Telemedicine Encounter Telemedicine Encounter: The entirety of this encounter was performed via Telemedicine" Hyponatremia Seems hypovolemic hyponatremia Due to low p.o. intake Sodium 124 upon admission Received 1 L bolus in ER Will continue normal saline at 100 cc/h Aim to correct sodium slowly over next 24 hours Will stop hydrochlorothiazide upon discharge Will check TSH Headache New onset, no prior history of migraine Might related to unconrolled HTN, needs close BP monitoring Will get CT head to complete workup Will try Fioricet as per need Hypertension Blood pressure was running little bit high on admission with systolic 154 Will resume home lisinopril, no more hydrochlorothiazide due to hyponatremia Hydralazine as pended. If more than 180 Diabetes mellitus type 2 Will check HbA1c Keep holding metformin as patient is not eating well Continue sliding scale coverage for now Anxiety/depression Recently started on Topamax and dose got increased She told me she was not taking Zoloft anymore Right ovarian cyst As by CT con 02/16----> . 4.1 cm right ovary cyst. Needs F/u with [employer] as out pt GERD continue Pepcid DVT prophylaxis SCD/Lovenox CODE STATUS full Discharge planning pending clinical stability. I have reviewed patient lab vitals and imaging in detail question and concerns were addressed
[2024-02-20] MEDS ORDERED: APRESOLINE 20 MG/ML INJ IV PRN (07:02)
--- NOTE | 2024-02-20 08:00 | XRAY ---
Indication: High blood pressure. Swelling. Comparison: June 01, 2019 Portable chest again demonstrates normal heart and lungs. Bony thorax intact with mild degenerative changes. No new/acute findings.
[2024-02-20 08:35] LABS: ANION GAP 12.9 MEQ/L (5-15); Calcium 9.3 mg/dL (8.4-10.2); Creatinine 1 0.49 mg/dL (0.52-1.04); EST GLOMERULAR FILTRATION RATE 115.5 ML/MIN; Potassium 3.9 mmol/L (3.5-5.1)
[2024-02-20] MEDS: Pepcid 20 MG PO SCH (09:56)
[2024-02-20] MEDS: TOPIRAMATE PO SCH (09:56)
[2024-02-20] MEDS: Lopressor 50 MG PO SCH (09:58)
[2024-02-20] MEDS: ENOXAPARIN SODIUM SQ SCH (09:59)
[2024-02-20] MEDS ORDERED: PHENTERMINE HCL 37.5 MG PO SCH (10:00)
[2024-02-20] MEDS ORDERED: NON-FORMULARY ITEM (Progesterone, Micronized [Progesterone] 100 MG Capsule) PO SCH (10:00)
[2024-02-20] MEDS ORDERED: TOPIRAMATE 100 MG PO SCH (10:00)
[2024-02-20] MEDS: xanAX 0.25 MG PO ONE (10:49)
--- NOTE | 2024-02-20 11:29 | XRAY ---
CLINICAL HISTORY: Headaches COMPARISON: None TECHNIQUE: CT of the head was performed with axial images as well as sagittal and coronal reconstruction images without intravenous contrast. One of the following dose reduction techniques was utilized for this exam.Automated exposure control, adjustment of the mA and/or kV according to patient size, and use of iterative reconstruction. FINDINGS: No intraaxial or extraaxial hemorrhage or masses are seen. No medial line shifting or mass effect was detected. The ventricular system is not enlarged; symmetric. Common CT pattern of the basal ganglia, brainstem, and cerebellum but early tiny calcification in the right basal ganglia. The convex sulcuses and basal cisterns show normal configuration. All paranasal sinuses, both mastoid and middle ears are clear and pneumatized with no fluid density inside. The orbits and soft tissue show no remarkable abnormality. On bone window there was no evidence of osteolytic or osteoblastic lesions. No fractures were detected. IMPRESSION: 1. No acute findings. 2. Brain CT shows no remarkable abnormalities. Electronically Signed by: Micki Caraballo MD. (02/20/2024 11:25:03 EDT)
[2024-02-20] MEDS ORDERED: MEDICATION INTERVENTION MC SCH ×4 (11:30)
[2024-02-20] MEDS: Zofran 4 MG/2 ML VIAL IV PRN (12:32)
[2024-02-20] MEDS: TYLENOL 325 MG PO PRN (15:53)
[2024-02-20] MEDS: xanAX 0.25 MG PO PRN (21:20)
[2024-02-20] MEDS: ZOCOR 20MG PO SCH (21:21)
[2024-02-20] MEDS: Zestril 20 MG PO SCH (21:21)
[2024-02-20] MEDS ORDERED: NON-FORMULARY ITEM (Atorvastatin Calcium [Atorvastatin Calcium] 20 MG Tablet) PO SCH (22:00)
[2024-02-21 05:49] LABS: Hematocrit 36.3 % (34.1-44.9); Hemoglobin 12.5 g/dL (11.2-15.7); Mean Cell Volume 87.3 fL (79.4-94.8); Mean Corpuscular Hgb Concent. 34.4 g/dL (32.2-35.5); Mean Platelet Volume 9.5 fL (9.4-12.3); Platelet Count 278 x10^3/uL (182-369); Red Blood Count 4.16 x10^6/uL (3.93-5.22); Red Cell Distribution Width 12.1 % (11.7-14.4); White Blood Count 5.6 x10^3/uL (3.98-10.04)
[2024-02-21 06:12] LABS: ANION GAP 10.7 MEQ/L (5-15); Calcium 9.3 mg/dL (8.4-10.2); Creatinine 1 0.6 mg/dL (0.52-1.04); Potassium 3.5 mmol/L (3.5-5.1)
--- NOTE | 2024-02-21 11:18 | PCM.DS ---
Discharge Summary Date of Admission: 02/20/24 04:59 Date of Discharge: 02/21/24 Admitting Physician: MEI RECINOS MD Primary Care Provider: PÉREZ,HIRAL Allergies Allergies iodine Allergy (Mild, Verified 02/20/24 00:53) Penicillins Allergy (Mild, Verified 02/20/24 00:53) Hospital Summary - Hospital Course Hospital Course: HPI: Joshua is a 48 year old female with PMH significant fo rHTN, DM, Anxiety, HLD admitted to [facility] 02/20/24 with hyponatremia after experiencing a week history of headache /nausea and feeling weak. Patient told me that due to ongoing nausea she was not able to eat well for last 1 week, denied having any vomiting or diarrhea. She did not have any abdominal pain. She saw her PCP recently and being told about the right ovarian cyst that needs to be operated. She further told me that she is not taking Zoloft anymore and her Topamax dose recently been increased. As far as her headache is concerned it is something new denied having any history of migraine. CT head negative. In the ER her initial blood pressure was 154/89 she was afebrile with stable pulse. As well as blood workup concern sodium was 124, low bicarb and chloride with high anion gap. Creatinine within normal range. Urine was clear. EKG unremarkable. Chest x-ray was negative. Patient was given 1 L bolus admitted and received IVF. Hyponatremia and acidosis corrected. Patient endorses much improvement, no further headache, nausea, or weakness. Advised to continue to hold HCTZ until follow up with PCP. Discharge Note New Diagnosis: Hyponatremia New Medications:zofran Follow Up: PCP Latest Assessment & Plan Hyponatremia Seems hypovolemic hyponatremia Due to low p.o. intake Sodium 124 upon admission Received 1 L bolus in ER Will continue normal saline at 100 cc/h Aim to correct sodium slowly over next 24 hours Will stop hydrochlorothiazide upon discharge Will check TSH 02/20: -Resolved Headache New onset, no prior history of migraine Might related to unconrolled HTN, needs close BP monitoring Will get CT head to complete workup Will try Fioricet as per need 02/20: -resolved Hypertension Blood pressure was running little bit high on admission with systolic 154 Will resume home lisinopril, no more hydrochlorothiazide due to hyponatremia Hydralazine as pended. If more than 180 -02/20: Continue to hold HCTZ Diabetes mellitus type 2 Will check HbA1c Keep holding metformin as patient is not eating well Continue sliding scale coverage for now Anxiety/depression Recently started on Topamax and dose got increased She told me she was not taking Zoloft anymore Right ovarian cyst As by CT con 02/16----> . 4.1 cm right ovary cyst. Needs F/u with [employer] as out pt GERD continue Pepcid I spent 35 minutes [id number] with the patient on the day of discharge performing discharge exam, discussing hospital stay and discharge instructions with patient and caregivers, preparation of discharge records, prescriptions & referral forms and addressing any questions/concerns the patient had as documented above. - Vitals & Intake/Output Vital Signs: Vital Signs Temperature 97.5 F 02/21/24 08:00 Pulse Rate 80 02/21/24 08:00 Respiratory Rate 19 02/21/24 08:00 Blood Pressure 121/78 02/21/24 08:00 O2 Sat by Pulse Oximetry 99 02/21/24 08:00 Intake & Output: Intake & Output 02/18/24 02/19/24 02/20/24 02/21/24 11:59 11:59 11:59 11:59 Intake Total 240 3219 Balance 240 3219 Weight 81 kg - Lab Result Diagrams: 02/21/24 05:24 02/21/24 05:24 Lab Results-Last 24 Hrs: Lab Results-Last 24 Hours 02/20/24 02/20/24 02/21/24 Range/Units 15:45 22:00 05:24 WBC 5.6 (3.98-10.04) x10^3/uL RBC 4.16 (3.93-5.22) x10^6/uL Hgb 12.5 (11.2-15.7) g/dL Hct 36.3 (34.1-44.9) % MCV 87.3 (79.4-94.8) fL MCH 30.0 (25.6-32.2) pg MCHC 34.4 (32.2-35.5) g/dL RDW 12.1 (11.7-14.4) % Plt Count 278 (182-369) x10^3/uL MPV 9.5 (9.4-12.3) fL Sodium (135-145) mmol/L Potassium (3.5-5.1) mmol/L Chloride (98-107) mmol/L Carbon Dioxide (22-30) mmol/L Anion Gap (5-15) MEQ/L BUN (7-17) mg/dL Creatinine (0.52-1.04) mg/dL Estimated GFR ML/MIN Glucose (74-106) mg/dL POC Glucometer 146 H 110 H (74 to 106) mg/dL Calcium (8.4-10.2) mg/dL 02/21/24 02/21/24 Range/Units 05:24 07:06 WBC (3.98-10.04) x10^3/uL RBC (3.93-5.22) x10^6/uL Hgb (11.2-15.7) g/dL Hct (34.1-44.9) % MCV (79.4-94.8) fL MCH (25.6-32.2) pg MCHC (32.2-35.5) g/dL RDW (11.7-14.4) % Plt Count (182-369) x10^3/uL MPV (9.4-12.3) fL Sodium 137 D (135-145) mmol/L Potassium 3.5 (3.5-5.1) mmol/L Chloride 107 (98-107) mmol/L Carbon Dioxide 23 (22-30) mmol/L Anion Gap 10.7 (5-15) MEQ/L BUN 6 L (7-17) mg/dL Creatinine 0.60 (0.52-1.04) mg/dL Estimated GFR 110.0 ML/MIN Glucose 120 H (74-106) mg/dL POC Glucometer 110 H (74 to 106) mg/dL Calcium 9.3 (8.4-10.2) mg/dL Micro Results-Entire Visit: Accuchecks Date 02/21/24 Date 02/20/24 Date 02/20/24 - Radiology Exams Ordered Rad Exams-Entire Visit: Radiology Procedures Category Date Time Status CHEST 1 VIEW (PORTABLE) Stat Exams 02/20/24 01:02 Completed HEAD WITHOUT CONTRAST [CT] Stat Exams 02/20/24 07:02 Completed Discharge Exam General Appearance: no apparent distress Neurologic Exam: alert, oriented x 3, cooperative Eye Exam: PERRL Ears, Nose, Throat Exam: normal ENT inspection Neck Exam: normal inspection Respiratory Exam: normal breath sounds, lungs clear Cardiovascular Exam: regular rate/rhythm, normal heart sounds Gastrointestinal/Abdomen Exam: soft, normal bowel sounds Pelvic Exam: deferred Rectal Exam: deferred Back Exam: normal inspection Extremity Exam: normal inspection Skin Exam: normal color Final Diagnosis/Problem List - Final Discharge Diagnosis/Problem (1) Hyponatremia Current Visit: Yes Status: Resolved Code(s): E87.1 - HYPO-OSMOLALITY AND HYPONATREMIA (2) Hypertension Current Visit: Yes Status: Chronic Code(s): I10 - ESSENTIAL (PRIMARY) HYPERTENSION (3) Hypochloremia Current Visit: Yes Status: Resolved Code(s): E87.8 - OTH DISORDERS OF ELECTROLYTE AND FLUID BALANCE, NEC (4) Right ovarian cyst Current Visit: No Status: Chronic Code(s): N83.201 - UNSPECIFIED OVARIAN CYST, RIGHT SIDE (5) Nausea & vomiting Current Visit: Yes Status: Resolved Code(s): R11.2 - NAUSEA WITH VOMITING, UNSPECIFIED (6) Headache Current Visit: Yes Status: Resolved Code(s): R51.9 - HEADACHE, UNSPECIFIED - Discharge Disposition: Home, Self-Care Condition: Stable Prescriptions: New Ondansetron ODT 4 MG [Zofran Odt 4 mg] 4 mg PO Q6HPRN PRN 30 Days #30 tab PRN Reason: Nausea Continue Metformin HCl 500 mg [Glucophage 500 MG] 1,000 mg PO BID Atorvastatin Calcium 20 mg PO HS Topiramate 50 mg PO DAILY Sertraline HCl 50 mg [Zoloft 50 mg Tablet] 50 mg PO DAILY Tirzepatide [Mounjaro] 12.5 mg SQ WEEKLY estradioL [Estradiol (Twice Weekly)] 1 each TD UD Progesterone, Micronized [Progesterone] 100 mg PO DAILY Phentermine HCl 37.5 mg PO DAILY Metoprolol Tartrate 50 mg [Lopressor 50 MG] 50 mg PO DAILY Lisinopril 20 mg [Zestril 20 MG] 20 mg PO HS Famotidine 20 mg PO DAILY PRN PRN Reason: Stomach Upset Discontinued Hydrochlorothiazide 25 mg [hydroDIURIL 25 MG] 25 mg PO DAILY Follow up with: HIRAL ORTEZ MD [Primary Care Provider] -
[2024-02-21 11:52] VITALS: BP 141/83; PULSE 58; RESP 18; TEMP 97.7; O2SAT 98
== END 2024-02-21 13:33 | disposition home or self-care (01) ==
LOC: ED 00:49 → MED SURG 04:59
PROVIDERS: ADMIT Internal Medicine; ATTEND Internal Medicine
DX: E87.1 Hypo-osmolality and hyponatremia (principal); R51.9 Headache, unspecified; I10 Essential (primary) hypertension; E11.9 Type 2 diabetes mellitus without complications; F41.9 Anxiety disorder, unspecified; N83.201 Unspecified ovarian cyst, right side; K21.9 Gastro-esophageal reflux disease without esophagitis; R11.2 Nausea with vomiting, unspecified; Z79.899 Other long term (current) drug therapy
CPT/HCPCS: 0241U; 36000; 36415; 70450; 71045; 80048; 80053; 81001; 82947; 83880; 83935; 84133; 84300; 84443; 85025; 85027; 96374; 99285; G0378; Q3014; J1650; J2405; A9270-GY

== ENCOUNTER 2025-06-14 08:39 | Emergency (ER) | payer BC ==
[2025-06-14 08:59] VITALS: TEMP 97; O2SAT 98
--- NOTE | 2025-06-14 09:42 | ERPHSYRPT ---
- History of Present Illness Time Seen by Provider: 06/14/25 09:21 Source: patient Exam Limitations: no limitations Patient Subjective Stated Complaint: sick for past for days with bad headache, patient has cough/congestion as well, patient stated she started this morning with vision trouble to right eye upon waking, patient states this has since gone away shortly after waking and has happened before with previous migraines Triage Nursing Assessment: patient presents to ed via private vehicle, patient able to ambulate into ed without complication, patient alert and oriented x4, skin p/w/d, patient denies sob/chest pain, patient's lungs clear throughout all akers, vitals wnl, abdomen soft, round, nondistended, patient has intermittent productive cough, patient denies blurry vision/double vision at this time Physician History: Patient comes to the emergency room due to cough congestion going on for the past 3 to 4 days along with having ringing in the ears and pressure in both ears. Also a sore throat no fever. Patient states that she has no wheezing no short of breath but mostly cough related Timing/Duration: day(s) Cough Quality/Degree: mild Possible Cause: occasional episodes Modifying Factors: Improves With: nothing Associated Symptoms: cough, earache, nasal congestion, sore throat Allergies/Adverse Reactions: iodine Allergy (Mild, Verified 06/14/25 08:45) Penicillins Allergy (Mild, Verified 06/14/25 08:45) Home Medications: Metformin HCl 500 mg [Glucophage 500 MG] 1,000 mg PO BID 07/01/21 [History] Lisinopril 20 mg [Zestril 20 MG] 20 mg PO HS 02/20/24 [History] Metoprolol Tartrate 50 mg [Lopressor 50 MG] 50 mg PO DAILY 02/20/24 [History] Progesterone, Micronized [Progesterone] 200 mg PO DAILY 02/20/24 [History] Tirzepatide [Mounjaro] 12.5 mg SQ WEEKLY 02/20/24 [History] estradioL [Estradiol (Twice Weekly)] 1 each TD UD 02/20/24 [History] Hydrochlorothiazide 25 mg [hydroDIURIL 25 MG] 25 mg PO DAILY 02/14/25 [History] Lisdexamfetamine Dimesylate 30 mg PO DAILY 02/14/25 [History] Omeprazole 20 mg PO DAILY 02/14/25 [History] Hx Tetanus, Diphtheria Vaccination/Date Given: Yes Hx Influenza Vaccination/Date Given: No Hx Pneumococcal Vaccination/Date Given: No Travel Risk - International Travel Have you traveled outside of the country in past 3 weeks: No - Emerging Infectious Disease Are you exhibiting symptoms associated with any current EIDs: Yes Symptoms: Cough: New Onset, Headaches/Body Aches/ - Review of Systems Constitutional: Fatigue Eyes: No Symptoms Ears, Nose, & Throat: Ear Pain, Nose Congestion, Throat Pain Respiratory: Cough Cardiac: No Chest Pain, No Edema, No Syncope Abdominal/Gastrointestinal: No Abdominal Pain, No Nausea, No Vomiting, No Diarrhea Neurological: No Dizziness, No Focal Weakness, No Sensory Changes Psychological: No Symptoms - Past Medical History Pertinent Past Medical History: Yes Neurological History: No Pertinent History ENT History: No Pertinent History Cardiac History: High Cholesterol, Hypertension Respiratory History: No Pertinent History Endocrine Medical History: Diabetes Type II Musculoskeletal History: No Pertinent History GI Medical History: GERD History: No Pertinent History Psycho-Social History: Anxiety Female Reproductive Disorders: No Pertinent History Other Medical History: HRT - Past Surgical History Past Surgical History: Yes Neuro Surgical History: No Pertinent History Cardiac: No Pertinent History Respiratory: No Pertinent History Gastrointestinal: No Pertinent History Genitourinary: No Pertinent History Musculoskeletal: No Pertinent History Female Surgical History: Section Other Surgical History: breast lift. skin removal from arms and abdomen Significant Family History: no pertinent family hx (No family history pertaining to this admission reported) - Female History Hx Last Menstrual Period: september 23 2012 Hx Now: No - Social History Smoking Status: Never smoker Exposure to second hand smoke: No Drug Use: none - Social Determinants of Health Will the patient participate in the screening: Yes Do you worry about a steady place to live?: No Do you have any problems with any of the following?: No known problems In the past 12 months,have you had to go without utilities?: No Transportation Issues: No Has anyone in your support network made you feel unsafe?: No Have you or anyone in your house had to go w/o enough food: No - Nursing Vital Signs Nursing Vital Signs: Initial Vital Signs Temperature 97 F 06/14/25 08:39 Pulse Rate 87 06/14/25 08:39 Respiratory Rate 18 06/14/25 08:39 Blood Pressure 124/75 06/14/25 08:39 O2 Sat by Pulse Oximetry 98 06/14/25 08:39 Pain Scale Pain Intensity 2 - Physical Exam General Appearance: no apparent distress Eye Exam: PERRL/EOMI Ears, Nose, Throat Exam: normal ENT inspection, moist mucous membranes Neck Exam: normal inspection Respiratory Exam: normal breath sounds Cardiovascular Exam: regular rate/rhythm Gastrointestinal/Abdomen Exam: soft Neurologic Exam: alert, oriented x 3, cooperative, 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, normal mood/affect Skin Exam: normal color Lymphatic Exam: adenopathy SpO2 Interpretation: normal SpO2: 98 O2 Delivery: Room Air Lab/Rad Data: Laboratory Results 06/14/25 Range/Units 08:56 Influenza Type A Ag NEGATIVE (NEGATIVE) Influenza Type B Ag NEGATIVE (NEGATIVE) RSV (PCR) NEGATIVE (NEGATIVE) SARS-CoV-2 (PCR) NEGATIVE (NEGATIVE) Group A Strep Antibody NEGATIVE (NEGATIVE) - Progress Air Movement: good Progress Note: 06/14/25 09:43 Patient is not hypoxemic nor is the patient in any signs of respiratory distress patient is afebrile on physical exam there is no findings that would suggest respiratory distress or hypoxia. At this time based on physical exam it appears the patient is suffering from a viral URI. Patient's lungs are clear Blood Culture(s) Obtained: No Antibiotics given: No Medical Desision Making - Independent Historian Additional History obtained from: Spouse - Discussion of managment Reviewed:: Test results Agreed on:: Treatment plan - Diagnostic Testing Diagnostic test were ordered, analyzed, and reviewed by me: Yes - Risk of complications Minimal Risk: Minimal risk of morbidity - Departure Clinical Impression: Viral URI with cough Condition: Stable Critical Care Time: No Referrals: HIRAL ORTEZ MD [Primary Care Provider, INTERNAL [facility]IC[facility]] - Follow up/PCP as directed
[2025-06-14 10:19] LABS: Group A Strep NEGATIVE (NEGATIVE)
[2025-06-14 10:28] LABS: INFLUENZA A NEGATIVE (NEGATIVE); INFLUENZA B NEGATIVE (NEGATIVE); RESPIRATORY SYNCTIAL VIRUS NEGATIVE (NEGATIVE); SARS-CoV-2 Xpert Express NEGATIVE (NEGATIVE)
[2025-06-14 10:56] VITALS: BP 121/72; PULSE 81; RESP 15
== END 2025-06-14 10:58 | disposition home or self-care (01) ==
LOC: ED 08:39
DX: J06.9 Acute upper respiratory infection, unspecified (principal); R05.1 Acute cough; J02.9 Acute pharyngitis, unspecified; I10 Essential (primary) hypertension; E11.9 Type 2 diabetes mellitus without complications; Z79.84 Long term (current) use of oral hypoglycemic drugs; Z79.85 Long-term (current) use of injectable non-insulin antidiabetic drugs; Z79.899 Other long term (current) drug therapy